=== PATIENT | female | born 1945 | race Caucasian/White ===

== ENCOUNTER → 2021-01-10 | Outpatient (CLI) | payer OTHER ==
[2021-01-12 07:11] LABS: HBSAG SCREEN Negative (Negative); HEP B CORE AB, TOT Negative (Negative); RHEUMATOID ARTHRITIS FACTOR <10.0 IU/mL (0.0-13.9); VITAMIN D, 25-HYDROXY 47.1 ng/mL (30.0-100.0)
[2021-01-12 11:15] LABS: HCV AB <0.1 (0.0-0.9)
[2021-01-13 00:09] LABS: CCP ANTIBODIES IGG/IGA 59 units (0-19)
[2021-01-13 07:11] LABS: QUANTIFERON MITOGEN VALUE >10.00 IU/mL (.); QUANTIFERON-TB GOLD PLUS Negative (Negative)
== END ==
LOC: LAB 12:10
PROVIDERS: Nurse Practitioner Family
DX: M65.80 Other synovitis and tenosynovitis, unspecified site (principal); D64.9 Anemia, unspecified; E55.9 Vitamin D deficiency, unspecified; M25.50 Pain in unspecified joint; D89.9 Disorder involving the immune mechanism, unspecified; R76.8 Other specified abnormal immunological findings in serum; Z87.39 Personal history of other diseases of the musculoskeletal system and connective tissue
CPT/HCPCS: 82550; 83520; 85652; 86140; 86200; 86431; 86704; 86803; 87340

== ENCOUNTER → 2021-06-22 | Outpatient (CLI) | payer OTHER | LOC: EXRD 11:30 | DX: M81.0 Age-related osteoporosis without current pathological fracture (principal); M85.88 Other specified disorders of bone density and structure, other site | CPT/HCPCS: 77080 ==

== ENCOUNTER 2021-10-18 14:32 | Inpatient (IN) | payer OTHER ==
[~2021-10-18] VITALS: Ht 152.4 cm; Wt 93.0 kg
[2021-10-18 15:47] LABS: RED BLOOD COUNT 2.51 M/UL (4.00-5.10)
[2021-10-18 16:22] LABS: BUN/CREATININE RATIO 41 (0-10)
[2021-10-18] MEDS ORDERED: BREZTRI AEROS10.7 GM INH (18:01)
[2021-10-18] MEDS ORDERED: GABAPENTIN100 MG PO (18:02)
[2021-10-18] MEDS ORDERED: SIMVASTATIN20 MG PO (18:02)
[2021-10-18] MEDS ORDERED: ALBUTEROL2.5 MG/3 M INH (18:02)
[2021-10-18] MEDS ORDERED: INSULIN AS100 UNIT/3 SQ (18:03)
[2021-10-18] MEDS ORDERED: FUROSEMIDE20 MG PO (18:04)
[2021-10-18] MEDS ORDERED: CARVEDILOL25 MG PO (18:04)
[2021-10-18] MEDS ORDERED: MELATONIN3 MG PO (18:04)
[2021-10-18] MEDS ORDERED: ASPIRIN EC81 MG PO (18:05)
[2021-10-18] MEDS ORDERED: LEVOTHYROXINE150 MCG PO (18:05)
[2021-10-18] MEDS ORDERED: ALLOPURINOL100 MG PO (18:05)
[2021-10-18] MEDS ORDERED: VITAMIN D21250 MCG PO (18:06)
[2021-10-18] MEDS ORDERED: B-121000 MCG PO (18:06)
[2021-10-18] MEDS ORDERED: ZETIA10 MG PO (18:06)
[2021-10-18] MEDS ORDERED: FOLIC ACID1 MG PO (18:06)
[2021-10-18] MEDS ORDERED: LEVEMIR FL100 UNIT/1 SQ (18:07)
[2021-10-18] MEDS ORDERED: LOPERAMIDE2 MG PO (18:07)
[2021-10-18] MEDS ORDERED: METHOTREXATE T2.5 MG PO (18:08)
[2021-10-18] MEDS ORDERED: LOPRESSOR50 MG PO (18:08)
[2021-10-18] MEDS ORDERED: ALENDRONATE SOD70 MG PO (18:08)
[2021-10-18] MEDS ORDERED: MECLIZINE HCL25 MG PO (18:09)
[2021-10-18] MEDS ORDERED: CARDIZEM CD180 MG PO (18:10)
[2021-10-18] MEDS ORDERED: ELIQUIS5 MG PO (18:10)
[2021-10-19 06:36] LABS: WHITE BLOOD COUNT 5.7 K/UL (4.5-11.0)
[2021-10-19 06:38] LABS: RED BLOOD COUNT 2.18 M/UL (4.00-5.10)
[2021-10-19 06:39] LABS: HEMOGLOBIN 6.9 gm/dl (12.3-15.3)
[2021-10-19 08:42] LABS: HEMOGLOBIN 6.5 gm/dl (12.3-15.3)
[2021-10-19 17:19] LABS: HEMOGLOBIN 8.2 gm/dl (12.3-15.3); WHITE BLOOD COUNT 6.8 K/UL (4.5-11.0)
[2021-10-19 17:20] LABS: RED BLOOD COUNT 2.59 M/UL (4.00-5.10)
[2021-10-20 04:46] LABS: HEMOGLOBIN 7.9 gm/dl (12.3-15.3); RED BLOOD COUNT 2.52 M/UL (4.00-5.10); WHITE BLOOD COUNT 6.5 K/UL (4.5-11.0)
[2021-10-21 04:58] LABS: HEMOGLOBIN 8.6 gm/dl (12.3-15.3); RED BLOOD COUNT 2.75 M/UL (4.00-5.10); WHITE BLOOD COUNT 7.3 K/UL (4.5-11.0)
[2021-10-21 05:29] LABS: BUN/CREATININE RATIO 48 (0-10)
[2021-10-22 04:59] LABS: HEMOGLOBIN 8.7 gm/dl (12.3-15.3); RED BLOOD COUNT 2.76 M/UL (4.00-5.10); WHITE BLOOD COUNT 6.8 K/UL (4.5-11.0)
[2021-10-22 05:11] LABS: BUN/CREATININE RATIO 57 (0-10)
[2021-10-23 08:26] LABS: RED BLOOD COUNT 3.18 M/UL (4.00-5.10); WHITE BLOOD COUNT 9.3 K/UL (4.5-11.0)
[2021-10-23 09:10] LABS: BUN/CREATININE RATIO 57 (0-10)
[2021-10-24 07:00] LABS: HEMOGLOBIN 10.1 gm/dl (12.3-15.3); RED BLOOD COUNT 3.3 M/UL (4.00-5.10); WHITE BLOOD COUNT 9.6 K/UL (4.5-11.0)
[2021-10-24 07:16] LABS: BUN/CREATININE RATIO 72 (0-10)
[2021-10-25 03:07] LABS: HEMOGLOBIN 9.6 gm/dl (12.3-15.3); RED BLOOD COUNT 3.05 M/UL (4.00-5.10); WHITE BLOOD COUNT 8.2 K/UL (4.5-11.0)
[2021-10-25 04:00] LABS: BUN/CREATININE RATIO 71 (0-10)
[2021-10-26 03:03] LABS: HEMOGLOBIN 9.7 gm/dl (12.3-15.3); RED BLOOD COUNT 3.13 M/UL (4.00-5.10); WHITE BLOOD COUNT 9.8 K/UL (4.5-11.0)
[2021-10-26 03:31] LABS: BUN/CREATININE RATIO 65 (0-10)
--- NOTE | 2021-10-27 01:59 | NUR ---
contacted provider regarding patients BGL of [id number], provider stated "ok". no new orders at this time.
[2021-10-27] MEDS ORDERED: ELIQUIS 2.5 MG2.5 MG PO (08:45)
[2021-10-27] MEDS ORDERED: PROTONIX 40 MG40 M1 PO (08:45)
[2021-10-27] MEDS ORDERED: ATORVASTATIN CA20 MG PO (08:45)
[2021-10-27] MEDS ORDERED: FUROSEMIDE20 MG PO (08:45)
[2021-10-27] MEDS ORDERED: LEVEMIR FL100 UNIT/1 SQ (08:45)
[2021-10-27] MEDS ORDERED: LOPRESSOR 25 MG25 MG PO (08:45)
[2021-10-27] MEDS ORDERED: IPRAT-ALBUT 0.5-3 ML NEB (08:45)
[2021-10-27] MEDS ORDERED: DIAMOX 250 MG250 MG PO (15:34)
== END 2021-10-28 11:15 | disposition home or self-care (01) | DRG 193 ==
LOC: ER1 14:32 → M/S 16:57 → CDU 16:57 → CCU 23:00 → M/S 10-23 13:37
PROVIDERS: Emergency Medicine; Internal Medicine; Internal Medicine Nephrology; Physician Assistant Medical; ADMIT Internal Medicine
PROC: 5A09457 Assistance with Respiratory Ventilation, 24-96 Consecutive Hours, Continuous Positive Airway Pressure (ICD-10-PCS; 2021-10-18)
PROC: 30233N1 Transfusion of Nonautologous Red Blood Cells into Peripheral Vein, Percutaneous Approach (ICD-10-PCS; principal; 2021-10-19)
PROC: B24BZZZ Ultrasonography of Heart with Aorta (ICD-10-PCS; 2021-10-19)
PROC: 02HV33Z Insertion of Infusion Device into Superior Vena Cava, Percutaneous Approach (ICD-10-PCS; 2021-10-19)
PROC: B548ZZA Ultrasonography of Superior Vena Cava, Guidance (ICD-10-PCS; 2021-10-19)
PROC: 3E043XZ Introduction of Vasopressor into Central Vein, Percutaneous Approach (ICD-10-PCS; 2021-10-20)
PROC: 5A09457 Assistance with Respiratory Ventilation, 24-96 Consecutive Hours, Continuous Positive Airway Pressure (ICD-10-PCS; 2021-10-20)
PROC: 5A09357 Assistance with Respiratory Ventilation, Less than 24 Consecutive Hours, Continuous Positive Airway Pressure (ICD-10-PCS; 2021-10-23)
PROC: 5A09357 Assistance with Respiratory Ventilation, Less than 24 Consecutive Hours, Continuous Positive Airway Pressure (ICD-10-PCS; 2021-10-24)
PROC: 5A09357 Assistance with Respiratory Ventilation, Less than 24 Consecutive Hours, Continuous Positive Airway Pressure (ICD-10-PCS; 2021-10-27)
PROC: 5A09357 Assistance with Respiratory Ventilation, Less than 24 Consecutive Hours, Continuous Positive Airway Pressure (ICD-10-PCS; 2021-10-28)
DX: J18.9 Pneumonia, unspecified organism (principal); A41.9 Sepsis, unspecified organism; R65.21 Severe sepsis with septic shock; J96.21 Acute and chronic respiratory failure with hypoxia; J96.22 Acute and chronic respiratory failure with hypercapnia; G93.41 Metabolic encephalopathy; N17.9 Acute kidney failure, unspecified; E87.3 Alkalosis; J44.0 Chronic obstructive pulmonary disease with (acute) lower respiratory infection; E66.2 Morbid (severe) obesity with alveolar hypoventilation; Z68.41 Body mass index [BMI] 40.0-44.9, adult; I13.0 Hypertensive heart and chronic kidney disease with heart failure and stage 1 through stage 4 chronic kidney disease, or unspecified chronic kidney disease; J44.1 Chronic obstructive pulmonary disease with (acute) exacerbation; E87.5 Hyperkalemia; M10.9 Gout, unspecified; E87.6 Hypokalemia; E03.9 Hypothyroidism, unspecified; E53.8 Deficiency of other specified B group vitamins; M81.0 Age-related osteoporosis without current pathological fracture; I48.91 Unspecified atrial fibrillation; D53.9 Nutritional anemia, unspecified; E11.22 Type 2 diabetes mellitus with diabetic chronic kidney disease; M06.9 Rheumatoid arthritis, unspecified; E78.5 Hyperlipidemia, unspecified; I25.10 Atherosclerotic heart disease of native coronary artery without angina pectoris; E86.0 Dehydration; I50.9 Heart failure, unspecified; Z96.1 Presence of intraocular lens; Z99.81 Dependence on supplemental oxygen; Z79.899 Other long term (current) drug therapy; Z90.49 Acquired absence of other specified parts of digestive tract; Z90.710 Acquired absence of both cervix and uterus; Z98.49 Cataract extraction status, unspecified eye; Z98.890 Other specified postprocedural states; Z88.0 Allergy status to penicillin; Z80.8 Family history of malignant neoplasm of other organs or systems; Z79.82 Long term (current) use of aspirin; Z79.4 Long term (current) use of insulin; Z79.01 Long term (current) use of anticoagulants
CPT/HCPCS: ECHO; 36415; 36430; 36600; 71045; 80048; 80053; 80202; 81001; 82550; 82553; 82607; 82728; 82746; 82803; 82962; 83540; 83550; 83605; 83735; 83880; 84484; 85014; 85018; 85025; 85027; 85379; 85610; 85730; 86850; 86900; 86901; 86920; 87040; 87081; 93005; 93306; 93970; 94640; 94660; 94664; 94760; 96374; 96375; 97110; 97110-GP-CQ; 97162; 97166; 97530; 97530-GP-CQ; 97535; 99285; C9113; J0692; J1650; J1940; J2270; J2930; J3370; J7030; J7040; J7050; J7070; P9016; P9047; Q9967; U0002

== ENCOUNTER → 2022-01-30 | Outpatient (CLI) | payer OTHER ==
[~2022-01-30] MED LIST: ALBUTEROL2.5 MG/3 M INH; ALENDRONATE SOD70 MG PO; ALLOPURINOL100 MG PO; ASPIRIN EC81 MG PO; ATORVASTATIN CA20 MG PO; B-121000 MCG PO; BREZTRI AEROS10.7 GM INH; CARDIZEM CD180 MG PO; CARVEDILOL25 MG PO; DIAMOX 250 MG250 MG PO; ELIQUIS 2.5 MG2.5 MG PO; ELIQUIS5 MG PO; FOLIC ACID1 MG PO; FUROSEMIDE20 MG PO; GABAPENTIN100 MG PO; INSULIN AS100 UNIT/3 SQ; IPRAT-ALBUT 0.5-3 ML NEB; LEVEMIR FL100 UNIT/1 SQ; LEVOTHYROXINE150 MCG PO; LOPERAMIDE2 MG PO; LOPRESSOR 25 MG25 MG PO; LOPRESSOR50 MG PO; MECLIZINE HCL25 MG PO; MELATONIN3 MG PO; METHOTREXATE T2.5 MG PO; PROTONIX 40 MG40 M1 PO; SIMVASTATIN20 MG PO; VITAMIN D21250 MCG PO; ZETIA10 MG PO
== END ==
LOC: KOH-I 01-23 13:00
DX: R91.8 Other nonspecific abnormal finding of lung field (principal)
CPT/HCPCS: 71250

== ENCOUNTER → 2022-03-14 | Outpatient (CLI) | payer OTHER | LOC: US 08:59 | DX: R94.02 Abnormal brain scan (principal); R22.9 Localized swelling, mass and lump, unspecified | CPT/HCPCS: 76536 ==

== ENCOUNTER → 2022-04-06 | Outpatient (CLI) | payer OTHER | LOC: CT 13:28 → KOH-I 13:30 | DX: R91.8 Other nonspecific abnormal finding of lung field (principal) | CPT/HCPCS: 71250 ==